=== PATIENT | female | born 1950 | race Caucasian/White ===

== ENCOUNTER 2020-12-23 14:37 | Emergency (ER) | payer MEDICARE, OTHER, SELFPAY ==
[2020-12-23 15:04] VITALS: BP 124/75; PULSE 94; RESP 14; TEMP 37.1; O2SAT 99; BMI 24.2
--- NOTE | 2020-12-23 15:08 | XRR_ITS ---
PROCEDURE INFORMATION: Exam: XR Left Ribs with PA Chest Exam date and time: 12/23/2020 3:12 PM Age: 70 years old Clinical indication: Pain; Other: Lt rib area; Additional info: Fall, rib pain and bruising TECHNIQUE: Imaging protocol: XR Left ribs with PA chest. Views: 3 views COMPARISON: CT Chest/Abdomen/Pelvis w IV* 05/19/2018 12:07 PM FINDINGS: Lungs: Mild hyperinflation of lungs. No focal airspace opacities. Pleural spaces: Unremarkable. No pleural effusion. No pneumothorax. Heart/Mediastinum: Unremarkable. No cardiomegaly. Bones/joints: Acute mildly displaced fracture in the posterior aspect of left ribs 8. XR/XR ribs LT mn 3V w CXR1V [id number] IMPRESSION: 1. Acute left posterior rib 8 fracture. 2. No focal airspace disease.
--- NOTE | 2020-12-23 15:43 | ED_ITS ---
HPI - Fall General: Chief Complaint: Fall Stated Complaint: FELL THIS MORNING, L RIB PAIN Time Seen by Provider: 12/23/20 15:08 History of Present Illness: HPI Narrative: Patient got up and fell against a nightstand a injuring left side of her chest has pain there presently and bruising. complaint: fall Onset (ago): hour(s) Fall from: standing Fall witnessed: no Place fall occurred: home Loss of consciousness: None Symptoms prior to fall: none Context: tripped/slipped Location of injury: chest Quality: aching Associated symptoms-after fall: Reports no associated symptoms; Denies abdominal pain, chest pain or headache(s) Review of Systems Narrative: Left side chest wall pain with bruising from a fall today Const: Denies: fever(s), chills or body aches Eyes: Denies: change in vision or blurry vision ENMT: Denies: throat pain or nasal congestion Card: Denies: chest pain or dyspnea on exertion Resp: Denies: dyspnea, productive cough or non-productive cough GI: Denies: abdominal pain, nausea or vomiting Musc: Denies: extremity pain Skin/Breast: Denies: rash Neuro: Denies: headache(s) Psych: Denies: anxiety or depression Alvaro/Lymph: Denies: easy bruising Physical Exam Const: COMMON NORMALS: no acute distress Chest: CHEST: Yes abnormal inspection of the chest (Tender left side with bruising 7th 8th rib area) Resp: COMMON NORMALS: clear to auscultation bilaterally AUSCULTATION: clear to auscultation bilaterally Psych: COMMON NORMALS: mental status grossly normal Course Vital Signs: Vital signs: Vital Signs Temperature 98.8 F 12/23/20 15:04 Pulse Rate 94 12/23/20 15:04 Respiratory Rate 14 12/23/20 15:04 Blood Pressure 124/75 12/23/20 15:04 Pulse Oximetry 99 12/23/20 15:04 Discharge Plan Discharge Condition: Good Coding Level of Care Code ED Hot Dog Vendor for Rogelio Shaw
[2020-12-23] MEDS: HYDROcodone-acetaminophen 5-325 mg Tablet 1 TAB PO (16:11)
== END 2020-12-23 16:22 | disposition home or self-care (01) ==
PROVIDERS: Emergency Provider Nurse Practitioner Family; PCP Internal Medicine
DX: R07.81 Pleurodynia (principal)
CPT/HCPCS: 71101; 99283

== ENCOUNTER 2021-01-25 10:28 | Outpatient (CLI) | payer MEDICARE, OTHER, SELFPAY ==
[2021-01-25 11:04] LABS: Basophils % 0.2 %; Eosinophils % 0.5 %; Hematocrit 41.4 % (37.0-47.0); Hemoglobin 13.6 g/dL (11.5-15.3); Lymphocytes # 1.7 10^3/uL (0.8-4.8); Lymphocytes % 20.3 %; Mean Corpuscular HGB Conc 32.9 g/dL (30.0-36.0); Mean Corpuscular Hemoglobin 28.6 pg (28.0-34.0); Mean Corpuscular Volume 87.2 fL (81-99); Mean Platelet Volume 10.6 fL (7.4-10.4); Monocytes # 0.5 10^3/uL (0.2-0.9); Monocytes % 6.7 %; Neutrophils # 5.86 10^3/uL (1.8-7.7); Neutrophils % 72.2 %; Nucleated Red Blood Cells % 0 %; Platelet Count 424 10^3/cmm (130-400); Red Blood Count 4.75 10^6/uL (4.1-5.3); White Blood Count 8.1 10^3/uL (4.0-10.0)
[2021-01-25 11:20] LABS: Ammonia 18 umol/L (11-51)
[2021-01-25 11:21] LABS: Alanine Aminotransferase 15 U/L (0-33); Albumin Level 4.6 g/dL (3.5-5.2); Alkaline Phosphatase 83 IU/L (35-105); Anion Gap 17.6 (5-19); Aspartate Amino Transferase 21 U/L (0-32); Blood Urea Nitrogen 10 mg/dL (8-23); Calcium 9.3 mg/dL (8.5-10.5); Carbon Dioxide 25 mmol/L (22-29); Chloride 98 mmol/L (98-107); Globulin 2.9 g/dL (1.3-4.6); Glomerular Filtration Rate 99.4 mL/min (90-130); Glucose 118 mg/dL (65-115); Osmolality Calculated 284 mOsm/kg (285-295); Potassium 3.6 mmol/L (3.5-5.1); Sodium 137 mmol/L (136-145); Total Bilirubin 0.9 mg/dL (0.15-1.2); Total Protein 7.5 g/dL (6.6-8.7)
== END 2021-01-25 10:29 | disposition home or self-care (01) ==
LOC: LAB 10:31
PROVIDERS: PCP Internal Medicine; Visit Provider Nurse Practitioner Family
DX: E87.6 Hypokalemia (principal); R41.0 Disorientation, unspecified; R11.0 Nausea
CPT/HCPCS: 36415; 80053; 82140; 85025

== ENCOUNTER 2021-03-06 10:34 | Outpatient (CLI) | payer MEDICARE, OTHER, SELFPAY ==
--- NOTE | 2021-03-06 10:40 | XR_ITS ---
WS: [id number] LEFT FOREARM 2 VIEWS HISTORY: PAIN IN LEFT ARM AFTER FALL COMPARISON: None available. Plate and screw fixation mid radius and ulna with healed fractures. Highly suspicious for nondisplace d radial metaphyseal fracture. There is a large amount of soft tissue edema surrounding the distal wr ist. Distal ulna is intact. Additional nondisplaced fracture through the radial styloid may be presen t. Mild narrowing of the radiocarpal joint. No foreign body or joint effusion. XR/XR forearm LT 2V [id number] IMPRESSION: 1. Nondisplaced radial metaphyseal fracture with a large amount of soft tissue edema. 2. Indeterminate for radial styloid fracture.
== END 2021-03-06 10:35 | disposition home or self-care (01) ==
PROVIDERS: PCP Internal Medicine; Visit Provider Internal Medicine
DX: S52.302A Unspecified fracture of shaft of left radius, initial encounter for closed fracture (principal); W19.XXXA Unspecified fall, initial encounter
CPT/HCPCS: 73090

== ENCOUNTER → 2021-03-07 10:30 | Outpatient (BNVA) | payer MEDICARE, OTHER, SELFPAY | PROVIDERS: PCP Internal Medicine; Referring Provider Internal Medicine; Visit Provider Specialist | DX: M25.532 Pain in left wrist (principal); Z46.89 Encounter for fitting and adjustment of other specified devices; S52.592D Other fractures of lower end of left radius, subsequent encounter for closed fracture with routine healing; X58.XXXD Exposure to other specified factors, subsequent encounter | CPT/HCPCS: 73110; 97760; L3982 ==

== ENCOUNTER 2021-03-07 11:42 | Outpatient (CLI) | payer MEDICARE, OTHER, SELFPAY | END 2021-03-07 11:43 | disposition home or self-care (01) | LOC: SPT 11:43 | PROVIDERS: PCP Internal Medicine; Visit Provider Specialist | DX: Z46.89 Encounter for fitting and adjustment of other specified devices (principal); S52.592D Other fractures of lower end of left radius, subsequent encounter for closed fracture with routine healing; X58.XXXD Exposure to other specified factors, subsequent encounter | CPT/HCPCS: 97760; L3982 ==

== ENCOUNTER 2021-03-16 15:08 | Outpatient (CLI) | payer MEDICARE, OTHER, SELFPAY ==
--- NOTE | 2021-03-16 15:15 | MM_ITS ---
WS: [id number] BILATERAL SCREENING DIGITAL MAMMOGRAM WITH CAD HISTORY: SCREENING COMPARISON: 05/19/2018 and 04/12/2016 Bilateral CC and MLO views submitted. Computer aided detection analyzed. Breast composition: The breasts are extremely dense, which lowers the sensitivity of mammography. No suspicious masses, microcalcifications or architectural distortion. Asymmetries in each breast remain stable. No area of distortion. Benign calcification anterior LEFT breast. MM/[place] [id number] IMPRESSION: BI-RADS: 2-Benign FOLLOW UP: 1 Year Follow-up
== END 2021-03-16 15:09 | disposition home or self-care (01) ==
LOC: RADSHAW 15:11
PROVIDERS: PCP Internal Medicine; Visit Provider Internal Medicine
DX: Z12.31 Encounter for screening mammogram for malignant neoplasm of breast (principal)
CPT/HCPCS: 77067

== ENCOUNTER → 2021-03-22 11:49 | Outpatient (BNVA) | payer MEDICARE, OTHER, SELFPAY | PROVIDERS: PCP Internal Medicine; Visit Provider Specialist | DX: M25.532 Pain in left wrist (principal); S52.502A Unspecified fracture of the lower end of left radius, initial encounter for closed fracture; X58.XXXA Exposure to other specified factors, initial encounter | CPT/HCPCS: 73110 ==

== ENCOUNTER → 2021-04-19 10:44 | Outpatient (BNVA) | payer MEDICARE, OTHER, SELFPAY | PROVIDERS: PCP Internal Medicine; Visit Provider Specialist | DX: S52.502A Unspecified fracture of the lower end of left radius, initial encounter for closed fracture (principal); S52.552A Other extraarticular fracture of lower end of left radius, initial encounter for closed fracture; M25.532 Pain in left wrist; X58.XXXA Exposure to other specified factors, initial encounter | CPT/HCPCS: 73110 ==

== ENCOUNTER 2022-02-13 09:51 | Outpatient (CLI) | payer MEDICARE, OTHER, SELFPAY ==
--- NOTE | 2022-02-13 10:09 | XR_ITS ---
WS: [id number] XR knee RT 4V [id number] REASON FOR EXAM: R KNEE PAIN FINDINGS: No fracture or focal bone lesion. Moderate narrowing of the lateral knee joint space with a more significant narrowing of the medial kn ee joint space. Subchondral sclerosis in both knee joint compartments with significant marginal osteo phyte formation in the medial knee joint compartment. Patellofemoral joint space is relatively well-maintained. Large patellofemoral joint marginal osteoph ytes of the femur. Probable joint loose bodies. XR/XR knee RT 4V [id number] IMPRESSION: Significant osteoarthritis in the right knee which is progressive compared 05/30.
== END 2022-02-13 09:52 | disposition home or self-care (01) ==
LOC: RAD 09:55
PROVIDERS: PCP Internal Medicine; Visit Provider Nurse Practitioner Family
DX: M25.561 Pain in right knee (principal); M17.11 Unilateral primary osteoarthritis, right knee
CPT/HCPCS: 73564

== ENCOUNTER → 2022-04-17 13:41 | Outpatient (BNVA) | payer MEDICARE, OTHER, SELFPAY | PROVIDERS: PCP Internal Medicine; Referring Provider Nurse Practitioner Family; Visit Provider Specialist | DX: M17.12 Unilateral primary osteoarthritis, left knee (principal); M17.11 Unilateral primary osteoarthritis, right knee | CPT/HCPCS: 73560; 73565; 99214 ==

== ENCOUNTER 2022-04-26 09:50 | Outpatient (CLI) | payer MEDICARE, OTHER, SELFPAY ==
--- NOTE | 2022-04-26 09:58 | MM_ITS ---
WS: [id number] BILATERAL SCREENING DIGITAL BREAST TOMOSYNTHESIS MAMMOGRAM WITH CAD HISTORY: SCREENING COMPARISON: 03/16/2021 and 05/19/2018 Bilateral CC and MLO views with tomosynthesis and synthetic mammography submitted. Computer aided det ection analyzed. Breast composition: The breasts are heterogeneously dense, which may obscure small masses. No suspici ous masses, microcalcifications or architectural distortion. MM/[place] [id number] IMPRESSION: BI-RADS: 1-Negative FOLLOW UP: 1 Year Follow-up
== END 2022-04-26 09:51 | disposition home or self-care (01) ==
PROVIDERS: PCP Internal Medicine; Visit Provider Internal Medicine
DX: Z12.31 Encounter for screening mammogram for malignant neoplasm of breast (principal)
CPT/HCPCS: 77063; 77067

== ENCOUNTER → 2022-05-27 10:16 | Outpatient (BNVA) | payer MEDICARE, OTHER, SELFPAY | PROVIDERS: PCP Internal Medicine; Visit Provider Specialist | DX: M17.11 Unilateral primary osteoarthritis, right knee (principal) | CPT/HCPCS: 99214 ==

== ENCOUNTER 2022-06-04 06:00 | Outpatient (CLI) | payer MEDICARE, OTHER, SELFPAY | END 2022-06-04 06:01 | disposition home or self-care (01) | LOC: RT 06-05 09:32 | PROVIDERS: PCP Internal Medicine; Visit Provider Specialist | DX: Z01.818 Encounter for other preprocedural examination (principal) | CPT/HCPCS: 93005 ==

== ENCOUNTER 2022-06-11 09:48 | Observation (INO) | payer MEDICARE, OTHER, SELFPAY ==
[2022-06-04 10:22] VITALS: BMI 29.9
--- NOTE | 2022-06-04 10:49 | ECG_ITS ---
[facility] Test Date: 2022-06-04 Pat Name: Elmira Kang Department: Room: Gender: Female Deputy Chief Executive: : 1950 Requested By: Inés Hill Order Number: [id number] Kumar MD: Quinn Powell M.D. Measurements Intervals Roland Rate: 65 P: 74 HI: 204 QRS: -21 QRSD: 118 T: 67 QT: 413 QTc: 431 Interpretive Statements SINUS RHYTHM INCOMPLETE RIGHT BUNDLE BRANCH BLOCK [90+ ms QRS DURATION, TERMINAL R IN V1/V2, 40+ ms S IN I/aVL/V4/V5/V6] SEPTAL MYOCARDIAL INFARCTION , PROBABLY OLD [40+ ms Q WAVE IN V1/V2] No previous ECG available for comparison Electronically Signed On 06-04-2022 16:32:08 CDT by Quinn Powell M.D. [email or web address]
[2022-06-04 10:59] LABS: Basophils % 0.6 %; Eosinophils # 0.1 10^3/uL (0.0-0.8); Eosinophils % 1.9 %; Hemoglobin 13.2 g/dL (11.5-15.3); Lymphocytes # 1.6 10^3/uL (0.8-4.8); Lymphocytes % 23.6 %; Mean Corpuscular Hemoglobin 27.4 pg (28.0-34.0); Mean Platelet Volume 10.3 fL (7.4-10.4); Monocytes # 0.5 10^3/uL (0.2-0.9); Monocytes % 7.7 %; Neutrophils # 4.55 10^3/uL (1.8-7.7); Neutrophils % 65.9 %; Nucleated Red Blood Cells % 0 %; Platelet Count 433 10^3/cmm (130-400); Red Blood Count 4.82 10^6/uL (4.1-5.3); Red Cell Distribution Width 12.9 % (12.1-15.1); White Blood Count 6.9 10^3/uL (4.0-10.0)
[2022-06-04 11:10] LABS: Add Urine Microscopic? YES; Bacteria Urine 2+ /hpf; Bilirubin Urine Neg (Negative); Blood Urine 3+ (Negative); Glucose Urine UA Norm (Normal); Ketones Urine Negative (Negative); Leukocyte Esterase Urine Trace (Negative); Nitrate Urine Negative (Negative); Protein Urine Neg (Negative); Specific Gravity, Urine 1.015 (1.005-1.030); Squamous Epithelial Cell Urine 0-4 /hpf (0-5); Urine Appearance Clear (CLEAR); Urine Color Yellow (Yellow); Urobilinogen Urine Norm (Negative); pH Urine 6 (5-7)
[2022-06-04 11:11] LABS: Add Urine Culture? Yes
[2022-06-04 11:21] LABS: Alanine Aminotransferase 7 U/L (0-33); Albumin Level 4.6 g/dL (3.5-5.2); Alkaline Phosphatase 84 U/L (35-105); Anion Gap 14.7 (5-19); Aspartate Amino Transferase 12 U/L (0-32); Blood Urea Nitrogen 12 mg/dL (8-23); Calcium 9.4 mg/dL (8.5-10.5); Carbon Dioxide 27 mmol/L (22-29); Chloride 101 mmol/L (98-107); Globulin 2.6 g/dL (1.3-4.6); Glucose 89 mg/dL (65-115); Osmolality Calculated 287 mOsm/kg (285-295); Potassium 3.7 mmol/L (3.5-5.1); Sodium 139 mmol/L (136-145); Total Bilirubin 0.5 mg/dL (0.15-1.2); Total Protein 7.2 g/dL (6.6-8.7)
--- NOTE | 2022-06-04 15:05 | ANES.PREANE2 ---
Pre-Anesthetic Assessment Height/Weight: Height 1.68 m Weight 84.368 kg Preop Diagnosis: Osteoarthritis Operation Date: 06/11/22 07:00 Proposed Procedures p RIGHT TOTAL KNEE ARTHROPLASTY 08235,M17.10(Right) - Cynthia Thorne MD Familial anesthetic complications: Last anesthetic woke up emotional Was Beta Binta taken within 24 hours: N/A Was Clonidine taken within 24 hours: N/A Social No alcohol and No tobacco Exam alert, oriented x 3, clear to auscultation bilaterally and regular rate & rhythm Airway Submandibular: within normal limits Cervical ROM: within normal limits Mallampati: Class I Dentition: full History/ROS No significant complaints Pulmonary None reported CV/HEM None reported METS > 4 EKG 06/04/22 ? Interpretive Statements SINUS RHYTHM INCOMPLETE RIGHT BUNDLE BRANCH BLOCK? [90+ ms QRS DURATION, TERMINAL R IN V1/V2, 40+ ms S IN I/aVL/V4/V5/V6] SEPTAL MYOCARDIAL INFARCTION , PROBABLY OLD [40+ ms Q WAVE IN V1/V2] No previous ECG available for comparison [email or web address] None reported Hepatic None reported GI Gastroesophageal Reflux Disease (Well controlled with medications ) Metabolic None reported Musc/skel None reported Neuropsych None reported Anesthetic Plan ASA status: 1 Anesthesia: Anesthesia Evaluation, General and Regional (specify below) (Adductor canal block ) Other: We discussed risk and benefits of general vs spinal anesthesia including DVT risk, infection, paralysis/catastrophic nerve injury, back bruising/pain, PDPH, conversion to general in case of spinal, PONV, sore throat (sometimes severe), corneal abrasion, positioning and peripheral nerve injuries, life threatening allergic reaction, post operative ICU admission requiring prolonged intubation, stroke, heart attack, , post operative delirium and/or post operative cognitive decline, and rare incidences of recall (under general anesthesia). We discussed risk and benefits of nerve block for post op pain control including management of pain and titration of pain medications as signs/symptoms of nerve block wearing off begin to appear and/or prior bed. We discussed risk of failed nerve block, vascular injury or other vital structure injury, abscess/infection, LAST, and nerve injury. Patient would like to proceed with spinal with adductor canal block for post op pain control. Risk of > 500 ml blood loss (7ml/kg in children): No Medications/Allergies Home Medications Medication Instructions Recorded Confirmed Last Taken Type amlodipine 5 mg tablet 5 mg PO DAILY 01/26/21 06/04/22 Unknown History levothyroxine 88 mcg capsule 88 mcg PO DAILY 01/26/21 06/04/22 Unknown History mirtazapine 30 mg tablet (Remeron) 30 mg PO DAILY 01/26/21 06/04/22 Unknown History oxycodone 10 mg tablet,extended 10 mg PO DAILY 01/26/21 06/04/22 Unknown History release,12 hr pantoprazole 40 mg tablet,delayed 40 mg PO DAILY 01/26/21 06/04/22 Unknown History release buspirone 15 mg tablet 15 mg PO BID 04/17/22 06/04/22 Unknown History celecoxib 200 mg capsule 200 mg PO DAILY 04/17/22 06/04/22 Unknown History zaleplon 10 mg capsule 10 mg PO BEDTIME 04/17/22 06/04/22 Unknown History Allergies Allergy/AdvReac Type Severity Reaction Status Date / Time No Known Allergies Allergy Verified 06/04/22 10:13 [facility] Anesthesia Family History Mother Hyperlipidemia Migraines Father Hypertension Brother Hyperlipidemia Social History Smoking and tobacco status: former smoker (as teenager) Alcohol intake: never Data Anesthesia : 06/04/22 10:40 06/04/22 10:40 Short CBC 06/04/22 Range/Units 10:40 WBC 6.9 (4.0-10.0) 10^3/uL Hgb 13.2 (11.5-15.3) g/dL Hct 40.0 (37.0-47.0) % MCV 83.0 (81-99) fl Plt Count 433 H (130-400) 10^3/cmm Neut % (Auto) 65.9 % Neut # (Auto) 4.55 (1.8-7.7) 10^3/uL BMP 06/04/22 10:40 Sodium 139 Potassium 3.7 Chloride 101 Carbon Dioxide 27 BUN 12 Creatinine 0.5 Glucose 89 Calcium 9.4 Liver Function 06/04/22 Range/Units 10:40 Total Bilirubin 0.5 (0.15-1.2) mg/dL AST 12 (0-32) U/L ALT 7 (0-33) U/L Alkaline Phosphatase 84 (35-105) U/L Albumin 4.6 (3.5-5.2) g/dL Urine 06/04/22 Range/Units 10:40 Urine Color Yellow (Yellow) Urine Appearance Clear (CLEAR) Urine pH 6 (5-7) Ur Specific [place] 1.015 (1.005-1.030) Urine Protein Neg (Negative) Urine Glucose (UA) Norm (Normal) Urine Ketones Negative (Negative) Urine Nitrate Negative (Negative) Urine Bilirubin Neg (Negative) Ur Leukocyte Esterase Trace H (Negative) Urine RBC 5-10 H (0-2) /hpf Urine WBC 5-10 H (0-5) /hpf Cardiac Studies: No Data to Display
[2022-06-11] VITALS (22 sets, daily range): BP systolic 103–159; BP diastolic 56–83; PULSE 66–83; RESP 14–18; TEMP 36.2–37.3; O2SAT 95–100
[2022-06-11] MEDS: acetaminophen 1,000 MG/100 ML PIGGYBACK 400 MG IV ×3 (06:08→20:58)
[2022-06-11] MEDS: sodium chloride 0.9% 1,000 ML 30 ML IV (06:09)
[2022-06-11] MEDS: CELEcoxib 200 mg Capsule 400 MG PO (06:09)
--- NOTE | 2022-06-11 06:46 | P.ANESUD_ITS ---
Pre-Anesthetic Update Pre-Anesthetic Assessment: Date of Surgery/Procedure: 06/11/22 Preop Danyelle gnosis: Primary osteoarthritis right knee Proposed Procedure: Operation Date: 06/11/22 07:00 Proposed Procedures p RIGHT TOTAL KNEE ARTHROPLASTY 32879,M17.10(Right) - Cynthia Thorne MD Any changes to Pre-Anesthetic Assessment?: No Last Intake: Intake Last Liquid Date 06/10/22 Last Liquid Time 21:00 Last Solid Date 06/10/22 Last Solid Time 17:00 Vitals: Temperature 97.6 F 06/11/22 05:45 Temperature Source Temporal Artery S can 06/11/22 05:45 Pulse Rate 76 06/11/22 05:45 Respiratory Rate 18 06/11/22 05:45 Blood Pressure 159/83 06/11/22 05:45 Blood Pressure Emily n 108 06/11/22 05:45 Pulse Oximetry 95 06/11/22 05:45 Oxygen Delivery Me thod 06/11/22 05:46 Exam: Pre-Anes Outpt Exam: alert, oriented x 3, clear to auscultation bilaterally and regular rate & rhythm Cardiac Studies: No Data to Display
--- NOTE | 2022-06-11 06:46 | ANES.PROC ---
Anesthesia Procedures Procedure/Date: 06/11/22 Nerve Block ^: Nerve Block 1: Main Anesthesia: spinal anesthesia block Time Out Performed: Yes Consent: requested by attending/covering physician, from patient, risks and benefits reviewed and patient agrees to proceed Nerve block location: adductor canal (R) Anesthesia monitors applied: pulse oximetry, EKG, BP cuff and oxygen Nerve block position: semi sitting Anesthetic Used: ropivicaine 0.5% (30) and with decadron (4 mg) Ultrasound used to: recognize landmarks and visualize and ID femerol nerve Nerve Stimulator Used?: No Interscalene/Femoral BLK: 4 stimuplex 21 g needle used for position and inplane approach, visualize local anesthetic spread and no vascular puncture identified Injection: neg aspiration of heme Patient Tolerated Procedure: well Complications: none
--- NOTE | 2022-06-11 06:54 | W.PM.OPSUD ---
Surgery/Procedure H&P Update DATE OF PROCEDURE: June 11, 2022 DATE H&P PERFORMED: 05/27/22 H&P UPDATE INFORMATION: I have reviewed H&P completed within last 30 days, I have examined patient prior to procedure, No changes to prior documentation and H&P is in [facility] EMR on date indicated PREOP DIAGNOSIS: Primary osteoarthritis right knee PLANNED PROCEDURE: Operation Date: 06/11/22 07:00 Proposed Procedures p RIGHT TOTAL KNEE ARTHROPLASTY 44290,M17.10(Right) - Cynthia Thorne MD Related Problem List Diagnoses (1) Primary osteoarthritis of right knee:
[2022-06-11] MEDS: ceFAZolin 2,000 MG in sodium chloride 0.9% (plus) 50 ML 100 MG IV ×3 (07:00→21:12)
[2022-06-11] MEDS: sodium chloride 0.9% 100 mL Bag XX (08:09)
[2022-06-11] MEDS: ceFAZolin 1,000 mg SDV 2000 MG IRRIGATION (08:10)
[2022-06-11] MEDS: vancomycin 1,000 MG SDV 1000 MG XX (08:11)
[2022-06-11] MEDS: tranexamic acid 1,000 mg/10mL SDV 1000 MG IV (09:15)
--- NOTE | 2022-06-11 10:24 | P.PCN_ITS ---
PACU note Narrative: VSS, Good respiratory effort, report to WIRE WINDER Exam: awake
--- NOTE | 2022-06-11 10:24 | PM.PACU ---
PACU note Narrative: VSS, Good respiratory effort, report to SUPERINTENDENT CUSTODIAN JANITOR Exam: awake
--- NOTE | 2022-06-11 10:32 | XRR_ITS ---
PROCEDURE INFORMATION: Exam: XR Right Knee Exam date and time: 06/11/2022 10:34 AM Age: 72 years old Clinical indication: Device placement; Joint replacement hardware; Prior surgery; Surgery date: Post-operative (0-2 days); Surgery type: Total knee arthroplasty; Additional info: Status post total knee arthroplasty TECHNIQUE: Imaging protocol: Radiologic exam of the Right knee. Views: 1 or 2 views. AP and Lateral COMPARISON: CR XR knees AP WB w RT lmt ORTH 04/17/2022 1:45 PM FINDINGS: Bones/joints: Recent postsurgical changes are seen status post 3 component total knee arthroplasty. There is expected postsurgical alignment. There are no fractures or dislocations. Soft tissues: There is soft tissue gas and swelling seen, related to the recent surgery. There are no radiopaque foreign bodies. Notes: Followup radiographs may be obtained for complete assessment. XR/XR knee RT 1-2V [id number] IMPRESSION: Postsurgical changes of the knee status post 3 component total knee arthroplasty, as noted above.
--- NOTE | 2022-06-11 10:51 | P.OP_ITS ---
Operative Report Date of procedure: June 11, 2022 Pre-op diagnosis: Primary osteoarthritis right knee Post-op diagnosis: Primary osteoarthritis right knee Post-op findings: Severe degenerative osteoarthritic change with denuded bone and large osteophytes Procedure done: Right total knee arthroplasty Implants: The Feliciano total knee system with a size 5 triathlon beaded posterior stabilized femur right, a triathlon titanium tibial component size 5 beaded, a triathlon X3 posterior stabilized tibial bearing insert size 5 X 11 mm and a beaded triathlon titanium asymmetric patella size 32 x 10 mm Specimens removed/disposition: Bone, disposed of Pathology: none sent Surgeon: Cynthia Thorne Linux Admin Engineer: [facility] operating room technicians Anesthesia: MAC (With Spinal and supplemental adductor canal block, ASA 1) Estimated blood loss (mL): 100 Tourniquet time (min): 71 At 250 mmHg IV fluids (mL): 1,200 Urine output (mL): 250 Complications: None Findings: Severe degenerative osteoarthritic change with large osteophytes in all 3 compartments. Flexion contracture. Condition: stable Disposition: PACU (Then to floor for post rehabilitation and pain management) Brief History: This 72-year-old woman presented to my office with complaints of severe right knee pain and instability. She had significant nonoperative treatments without improvement to a significant degree in her ability to perform activities of daily living. Patient states that she continued to have pain to the knee with instability.? In fact, she notes it has significantly worsened.? Patient ambulates with the use of a cane. Patient rates her pain a 6/10 preoperatively. Patient has attended the pre-operative joint class, and after consideration, she wished to proceed with right total knee arthroplasty. She understood the risks and complications, and consents were signed. Procedure: The patient was brought to the operating theater, and after undergoing adequate spinal anesthesia supplemented with adductor canal block and MAC, ASA 1, the right lower extremity was prepped with Dura-Prep and draped in usual fashion following placement of a tourniquet high on the leg. The leg was then draped free. Following prepping and draping, the leg was exsanguinated, and the tourniquet was elevated to 250 mmHg for a total tourniquet time of 71 minutes.? Prior to elevation of the tourniquet, but following exposure of the site of surgery, a surgical pause was performed. At the time of the surgical pause, we confirmed the site and side of surgery. Additionally, we confirmed the appropriate and timely administration of preoperative antibiotics, Ancef 2 g and Transexemic acid 1 g.? The availability of equipment was confirmed, and the patient's identity was verbalized as well.? An additional transexemic acid 1 g was given at the end of the surgical procedure as well. Following the surgical pause, an incision was made centering over the patella continuing proximally and distally as necessary to allow access to the knee joint. Dissection continued through skin and soft tissues using a scalpel. Hemostasis was obtained using electrocautery. The skin incision was followed by a median parapatellar arthrotomy. The leg was extended and the patella was everted. Following this, the leg was returned to flexed position.? There was eburnation particularly of the medial femoral condyle.? There were large osteophytes circumferentially about the trochlear groove as well as the patella and medial tibial plateau.? Resection of osteophytes was accomplished to allow for appropriate placement of the intraoperative jogging system. Distal femur was exposed, and a drill hole was made in this for placement of the distal femor al jig. The distal femoral jig was set at 5? of valgus. The distal femoral cutting block was then placed in appropriate position, and an ghislaine wing was used to confirm an appropriate amount of distal femur would be resected.? The distal femoral resection was accomplished with 10 mm of bone being resected distally due to preoperative flexion contracture.? After the distal femoral resection was accomplished, the femur was measured, and it measured a size 5.? Medial lateral dimension also measured a size 5.? A size 5 femoral cutting block was placed in position, and we were then able to accomplish the anterior, posterior and chamfer cuts. This jig was then removed, and the notch guide was placed in position. With the notch guide in appropriate position, the notch was excised including resection of the anterior and posterior cruciate ligaments. This notch was to allow for the posterior stabilized femoral component. At this point, the femur was prepared and attention was directed to the proximal tibia.? The posterior knee retractor was placed along with medial and lateral retractors. Further resection of the menisci was accomplished as we had better visualization. A complete meniscectomy was performed both medially and laterally with care being taken to protect the popliteus. Retractors were then placed so that the proximal tibia was well visualized. A drill hole was then made in the tibia for placement of the intramedullary guide. This guide was placed so that approximately 2 mm of bone would be resected from the deficient medial tibial plateau. The intramedullary guide was utilized supplemented with an extramedullary guide to assure appropriate alignment for the proximal tibial resection. The proximal tibial jig was then evaluated, pinned in position, and the proximal tibial resection was accomplished without difficulty.? The jig was removed, and the proximal tibia was measured. It measured a size 5. Further resection of osteophytes was able to be accomplished at this time. We also removed osteophytes from the posterior femoral condyles following proximal tibial resection. We then attempted a trial reduction with a size 5 by 9 mm. A medial release was accomplished.? The femoral component was placed in position for the trial reduction, and the knee was placed through range of motion.? We then increased to a size 5 x 11 mm insert. With this, there was appropriate patellar tracking. Extension was noted to be full as well.? With had excellent varus valgus alignment, and the knee was stable to varus valgus stress as well.? Therefore, these were the chosen components.? There was full extension and flexion without lift off and the rotation of the tibia was marked.? Alignment was checked from the hip to the ankle, and this was noted to be appropriate as w ell. Attention was then directed to the patella. The patella was measured with a caliper.? We resected sufficient patella to leave approximately 14 mm of patella remaining.? Measurements of the patella then indicated that a size asymmetric 32 mm x 10 mm was the appropriate patellar size. We then placed the jig to drill for the 3 pegs of the press-fit patella, and these drill holes were made without incident. A trial patella was then placed, and the knee was placed through range of motion. The patella was noted to track nicely without evidence of subluxation.? The femur was prepared for a press-fit femur by drilling 2 holes for the femoral pegs.? All trial components were subsequently removed. The tibial tray was then pinned into position, and we broached the tibia for the stem of the tibial component.? Subsequently, 4 drill holes were made for placement of the press-fit tibia.? This was accomplished without difficulty. Care was taken to assure appropriate rotation of the tibia as well as appropriate position on the proximal tibia. The tibial tray was completely seated on the proximal tibia. Following broaching, the tibial guide was removed, and all surfaces were copiously irrigated. The surfaces were then dried and a bone plug was placed into the distal femur.? Exparel was also subsequently injected. The Tritanium tibia was impacted into position.? The beaded femur was then i mpacted into position in a cementless fashion. The tibial insert was placed. The patella was pressed into position with a patellar clamp.? The knee was then copiously irrigated with betadine and saline and suctioned dry. Attention was then directed to closure. Closure was accomplished with 0 Vicryl in the fascial tissues.? Following this, a 2-0 Monocryl was used in the subcutaneous tissues, and the skin was closed with skin [place].? Care was taken to assure an excellent subcutaneous as well as skin closure.? A sterile dressing was then placed consisting of Dermabond Prineo, Telfa, OpSite, sterile soft roll including over the foot, and an Zechariah wrap. The patient was returned the Recovery Room in a satisfactory condition. X-rays were obtained and reviewed there.? The patient will be discharged to the floor for postoperative rehabilitation and pain management. Related Problem List Diagnoses (1) Primary osteoarthritis of right knee: (2) Status post total right knee replacement not using cement:
[2022-06-11] MEDS: pantoprazole DR 40 mg Tablet PO (11:51)
[2022-06-11] MEDS: amlodipine 5 mg Tablet PO (11:51)
[2022-06-11] MEDS: cholecalciferol (vitamin D3) 1,000 unit Tablet 1000 UNIT PO (11:51)
[2022-06-11] MEDS: oxyCODONE 5 mg IR Tab/Cap PO ×3 (11:51→20:58)
--- NOTE | 2022-06-11 12:41 | PC.CHAP ---
Pastoral Care Encounter/Spiritual Assessment Type of Contact [] Declined director operations broadcast visit [] Patient/Family/Request visit [] Outpatient visit [] Follow-up visit [] Physician referral [] Code/Alert [x] Routine visit [] Staff referral [] Actively dying [] Patient sleeping [] Family support [] [] Out of room [] Palliative care [] [] Receiving care in room [] Pre-surgical visit [] Trauma [] Long length of stay [] ICU visit [] Other: Relational/Emotional Strength [x] Patient feels connected with others/family/visitors/staff [] Distress [] Loneliness/isolation [] Abandonment Spirituality of Patient x[] Person of Sachi [] Attends Shinto of their Sachi [x] Believes in Prayer [] Reads Bible or Faith materials [] There are Spiritual issues to be addressed Supervisor Purification Interventions [x] Prayer [x] Active listening [] Non-anxious presence [] Spiritual/emotional support [] Crisis/trauma care [] Spiritual counseling [] Bereavement support [] Provided bereavement packet [] Provided Bible/devotional materials [] Provided toy/stuffed animal, coloring book to patient or family member [] Provided Communion [] Anointing/Mary Alice [] Salvation [x] Completed spiritual assessment [] Other: Impact on Illness or Injury [] Angry [] Fearful [] Anxious [] Often cries [] Exhaustion [] Unable to work [] Unable to attend temple [] Unable to walk/stand [] Unable to read [] Unable to drive [] Unable to eat/drink [] Unable to sleep [] Unable to be with family [] Patient intubated [] Other: Summary Time spent with patient 10 min
--- NOTE | 2022-06-11 15:27 | ANE.PACU2 ---
Inpatient post-anesthesia follow up: Airway intact: Yes Vital signs: Temperature 98.1 F Pulse Rate 73 Respiratory Rate 17 Blood Pressure 115/62 Pulse Oximetry 95 Oxygen Delivery Me thod Room Air Oxygen Flow Rate Fraction of Inspir ed Oxygen Hydration adequate: Yes Nausea and vomiting: No Pain level: 1 Mental status: Baseline
[2022-06-11] MEDS: chlorhexidine gluconate 0.12% Btl 473 mL 30 ML MUCOUS MEM ×2 (15:53→19:31)
[2022-06-11] MEDS: sennosides-docusate Tablet 2 TAB PO (17:04)
[2022-06-11] MEDS: sulfamethoxazole-trimeth DS 160-800 mg Tablet 1 TAB PO (17:04)
[2022-06-11] MEDS: BuSPIRONE 10 mg Tablet 15 MG PO (17:04)
[2022-06-11] MEDS: iron polysaccharide complex 150 mg Capsule PO (17:04)
[2022-06-11] MEDS: CELEcoxib 200 mg Capsule PO (19:28)
[2022-06-11] MEDS: mirtazapine 30 mg Tablet PO (19:28)
[2022-06-12] VITALS (8 sets, daily range): BP systolic 102–130; BP diastolic 61–74; PULSE 70–76; RESP 16; TEMP 36.5–36.9; O2SAT 96–97
[2022-06-12] MEDS: oxyCODONE 5 mg IR Tab/Cap PO ×3 (01:04→12:57)
[2022-06-12 03:14] LABS: Basophils % 0.1 %; Eosinophils % 0.2 %; Hematocrit 29.6 % (37.0-47.0); Hemoglobin 9.5 g/dL (11.5-15.3); Lymphocytes # 1.4 10^3/uL (0.8-4.8); Lymphocytes % 15.7 %; Mean Corpuscular HGB Conc 32.1 g/dL (30.0-36.0); Mean Corpuscular Volume 84.1 fl (81-99); Mean Platelet Volume 10.7 fL (7.4-10.4); Monocytes % 11.1 %; Neutrophils # 6.55 10^3/uL (1.8-7.7); Neutrophils % 72.6 %; Nucleated Red Blood Cells % 0 %; Platelet Count 283 10^3/cmm (130-400); Red Blood Count 3.52 10^6/uL (4.1-5.3); Red Cell Distribution Width 13.2 % (12.1-15.1)
[2022-06-12 03:42] LABS: Anion Gap 12.3 (5-19); Blood Urea Nitrogen 20 mg/dL (8-23); Calcium 8.8 mg/dL (8.5-10.5); Carbon Dioxide 25 mmol/L (22-29); Chloride 102 mmol/L (98-107); Glomerular Filtration Rate 82.7 mL/min (90-130); Glucose 124 mg/dL (65-115); Osmolality Calculated 286 mOsm/kg (285-295); Potassium 3.3 mmol/L (3.5-5.1); Sodium 136 mmol/L (136-145)
[2022-06-12] MEDS: acetaminophen 1,000 MG/100 ML PIGGYBACK 400 MG IV (05:06)
[2022-06-12] MEDS: ceFAZolin 2,000 MG in sodium chloride 0.9% (plus) 50 ML 100 MG IV (05:24)
[2022-06-12] MEDS: sennosides-docusate Tablet 2 TAB PO (07:24)
[2022-06-12] MEDS: levothyroxine 88 mcg Tablet PO (07:24)
[2022-06-12] MEDS: calcium carbonate 500 mg Chew Tablet 1000 MG PO (07:24)
[2022-06-12] MEDS: cholecalciferol (vitamin D3) 1,000 unit Tablet 1000 UNIT PO (07:25)
[2022-06-12] MEDS: BuSPIRONE 10 mg Tablet 15 MG PO (07:25)
[2022-06-12] MEDS: amlodipine 5 mg Tablet PO (07:25)
[2022-06-12] MEDS: aspirin 325 mg EC Tablet PO (07:25)
[2022-06-12] MEDS: sulfamethoxazole-trimeth DS 160-800 mg Tablet 1 TAB PO (07:25)
[2022-06-12] MEDS: multivitamin therapeutic Tablet 1 TAB PO (07:25)
[2022-06-12] MEDS: CELEcoxib 200 mg Capsule PO (07:26)
[2022-06-12] MEDS: pantoprazole DR 40 mg Tablet PO (07:26)
[2022-06-12] MEDS: iron polysaccharide complex 150 mg Capsule PO (07:26)
[2022-06-12] MEDS: chlorhexidine gluconate 0.12% Btl 473 mL 30 ML MUCOUS MEM (07:26)
[2022-06-12] MEDS: oxyCODONE 10 mg ER (12 HR) Tablet PO (10:04)
--- NOTE | 2022-06-12 13:44 | P.DS_ITS ---
Discharge Providers Date of Admission: 06/11/22 09:48 Date of Discharge: June 12, 2022 Attending Provider at Admission: Cynthia Thorne MD Attending Provider at Discharge: Cynthia Thorne MD Primary Care Provider: Sherley Cast MD Diagnoses at Discharge Discharge Diagnosis (1) Primary osteoarthritis of right knee: Status: Acute (2) Status post total right knee replacement not using cement: Status: Acute Permanent problem details: Date of procedure: June 11, 2022 Diagnosis: Primary osteoarthritis right knee with large osteophytes and flexion contracture Procedure done: Right total knee arthroplasty Implants: The [employer] total knee system with a size 5 triathlon beaded posterior stabilized femur right, a triathlon titanium tibial component size 5 beaded, a triathlon X3 posterior stabilized tibial bearing insert size 5 X 11 mm and a beaded triathlon titanium asymmetric patella size 32 x 10 mm Reason for Visit Reason for Visit: Right total knee arthroplasty Brief History: This 72-year-old woman presented to my office with complaints of severe right knee pain and instability.? She had significant nonoperative treatments without improvement to a significant degree in her ability to perform activities of daily living.? Patient states that she continued to have pain to the knee with instability.? In fact, she notes it has significantly worsened.? Patient ambulates with the use of a cane. Patient rates her pain a 6/10 preoperatively. Patient has attended the pre-operative joint class, and after consideration, she wished to proceed with right total knee arthroplasty.? She understood the risks and complications, and consents were signed. Hospital Course Hospital Course Patient was admitted following total knee arthroplasty as observation patient. She was to have physical therapy and be evaluated for potential discharge home with home health. The patient did well following her same-day total knee arthroplasty. On the first postoperative day, she was seen and evaluated on the floor. She was doing very well and was independent in getting up to the bathroom. Her dressing was removed. Her wound was benign. There was no evidence of DVT. She was neurologically intact. Outer bulky dressing was removed with the OpSite being maintained in appropriate position. After discussion with the patient, she was comfortable with discharge to home. Therefore this was scheduled for her. She will follow-up in the office as scheduled. Physical Exam Const: COMMON NORMALS: no acute distress, average body habitus, patient oriented x3 and alert GENERAL APPEARANCE: cooperative and comfortable ORIENTATION/CONSCIOUSNESS: Yes awake HENMT: COMMON NORMALS: normocephalic and atraumatic HEAD & SCALP: normocephalic and atraumatic Eye: GENERAL EYE: appearance normal, both eyes and all related structures Chest: COMMONS NORMALS: normal inspection of the chest Resp: COMMON NORMALS: normal respiratory effort EFFORT & INSPECTION: Yes able to speak in complete sentences and Yes symmetric chest movement Extremity: RIGHT LOWER EXTREMITY: Yes knee joint (Bulky dressing is removed, the knee is benign with minimal swelling.) Right knee: Yes inspection (No evidence of drainage.), Yes palpation (No tenderness to palpation.) and Yes neurovascular exam (Intact distally.) Neuro: COMMON NORMALS: patient oriented x3 SENSORIUM/ORIENTATION: Yes alert Psych: COMMON NORMALS: mental status grossly normal APPEARANCE: Yes grossly normal ATTITUDE: Yes calm and Yes engaged ATTENTION/CONCENTRATION: Yes attention grossly intact Skin: COMMON NORMALS: no rashes or lesions noted GENERAL SKIN EXAM: no rashes or lesions noted Urinary Catheter Management: Trinh: Cath Placed During This Visit: yes, but has since been removed by the nurse Reason for Continuing Indwelling Catheter: Decision to DC Catheter Urinary Catheter Date of Insertion: 06/11/22 Urinary Catheter Time of Insertion: 07:30 Date Urinary Catheter Removed: 06/12/22 Time Urinary Catheter Discontinued: 04:30 Discharge Data Studies Completed and Pending Completed Studies During Hospitalization Category Date Time Status XR knee RT 1-2V [id number] Routine Exams 06/11/22 10:32 Completed Radiology Impressions Knee X-Ray 06/11/22 10:32 IMPRESSION: Postsurgical changes of the knee status post 3 component total knee arthroplasty, as noted above. Laboratory Results WBC 9.0 10^3/uL (4.0-10.0) 06/12/22 02:28 RBC 3.52 10^6/uL (4.1-5.3) L 06/12/22 02:28 Hgb 9.5 g/dL (11.5-15.3) L 06/12/22 02:28 Hct 29.6 % (37.0-47.0) L 06/12/22 02:28 MCV 84.1 fl (81-99) 06/12/22 02:28 MCH 27.0 pg (28.0-34.0) L 06/12/22 02:28 MCHC 32.1 g/dL (30.0-36.0) 06/12/22 02:28 RDW 13.2 % (12.1-15.1) 06/12/22 02:28 Plt Count 283 10^3/cmm (130-400) 06/12/22 02:28 MPV 10.7 fL (7.4-10.4) H 06/12/22 02:28 Neut % (Auto) 72.6 % 06/12/22 02:28 Lymph % (Auto) 15.7 % 06/12/22 02:28 [place] % (Auto) 11.1 % 06/12/22 02:28 Eos % (Auto) 0.2 % 06/12/22 02:28 Baso % (Auto) 0.1 % 06/12/22 02:28 Neut # (Auto) 6.55 10^3/uL (1.8-7.7) 06/12/22 02:28 Lymph # (Auto) 1.4 10^3/uL (0.8-4.8) 06/12/22 02:28 [place] # (Auto) 1.0 10^3/uL (0.2-0.9) H 06/12/22 02:28 Eos # (Auto) 0.0 10^3/uL (0.0-0.8) 06/12/22 02:28 Baso # (Auto) 0.0 10^3/uL (0.0-0.1) 06/12/22 02:28 Nucleated RBC % (auto) 0 % 06/12/22 02:28 Nucleated RBCs # 0.0 /100WBC 06/12/22 02:28 Sodium 136 mmol/L (136-145) 06/12/22 02:28 Potassium 3.3 mmol/L (3.5-5.1) L 06/12/22 02:28 Chloride 102 mmol/L (98-107) 06/12/22 02:28 Carbon Dioxide 25 mmol/L (22-29) 06/12/22 02:28 Anion Gap 12.3 (5-19) 06/12/22 02:28 BUN 20 mg/dL (8-23) 06/12/22 02:28 Creatinine 0.7 mg/dL (0.5-0.9) 06/12/22 02:28 GFR Calculation 82.7 mL/min (90-130) L 06/12/22 02:28 Glucose 124 mg/dL (65-115) H 06/12/22 02:28 Calculated Osmolality 286 mOsm/kg (285-295) 06/12/22 02:28 Calcium 8.8 mg/dL (8.5-10.5) 06/12/22 02:28 Total Bilirubin 0.5 mg/dL (0.15-1.2) 06/04/22 10:40 AST 12 U/L (0-32) 06/04/22 10:40 ALT 7 U/L (0-33) 06/04/22 10:40 Alkaline Phosphatase 84 U/L (35-105) 06/04/22 10:40 Total Protein 7.2 g/dL (6.6-8.7) 06/04/22 10:40 Albumin 4.6 g/dL (3.5-5.2) 06/04/22 10:40 Globulin 2.6 g/dL (1.3-4.6) 06/04/22 10:40 Urine Color Yellow (Yellow) 06/04/22 10:40 Urine Appearance Clear (CLEAR) 06/04/22 10:40 Urine pH 6 (5-7) 06/04/22 10:40 Ur Specific [place] 1.015 (1.005-1.030) 06/04/22 10:40 Urine Protein Neg (Negative) 06/04/22 10:40 Urine Glucose (UA) Norm (Normal) 06/04/22 10:40 Urine Ketones Negative (Negative) 06/04/22 10:40 Urine Blood 3+ (Negative) H 06/04/22 10:40 Urine Nitrate Negative (Negative) 06/04/22 10:40 Urine Bilirubin Neg (Negative) 06/04/22 10:40 Urine Urobilinogen Norm mg/dL (Negative) 06/04/22 10:40 Ur Leukocyte Esterase Trace (Negative) H 06/04/22 10:40 Urine RBC 5-10 /hpf (0-2) H 06/04/22 10:40 Urine WBC 5-10 /hpf (0-5) H 06/04/22 10:40 Ur Squamous Epith Cells 0-4 /hpf (0-5) H 06/04/22 10:40 Amorphous Sediment Not Reportable 06/04/22 10:40 Urine Bacteria 2+ /hpf (NONE) H 06/04/22 10:40 Urine Yeast Trace /hpf 06/04/22 10:40 Vitals Last Vital Signs Temp 97.9 F 06/12/22 12:00 Pulse 76 06/12/22 12:00 Resp 16 06/12/22 13:40 BP 102/63 06/12/22 12:00 Pulse Ox 97 06/12/22 12:00 O2 Del Method 06/12/22 12:00 Discharge Plan Discharge Patient Disposition: Home Health Service Condition: Stable Prescriptions: New acetaminophen 500 mg Tablet 1,000 mg PO Q8H 15 Days Qty: 90 0RF aspirin 325 mg Tablet,Delayed Release (Dr/Ec) 325 mg PO DAILY 30 Days Qty: 30 0RF oxycodone 5 mg Tablet 5 mg PO Q4H PRN (Reason: Moderate Pain) 7 Days Qty: 30 0RF Continued amlodipine 5 mg tablet 5 mg PO DAILY oxycodone 10 mg tablet extended release 12 hr 10 mg PO DAILY pantoprazole 40 mg tablet,delayed release (DR/EC) 40 mg PO DAILY mirtazapine [Remeron] 30 mg tablet 30 mg PO DAILY levothyroxine 88 mcg capsule 88 mcg PO DAILY zaleplon 10 mg capsule 10 mg PO BEDTIME buspirone 15 mg tablet 15 mg PO BID celecoxib 200 mg capsule 200 mg PO DAILY sulfamethoxazole-trimethoprim [Bactrim DS] 800-160 mg tablet 1 tab PO BID 7 Days Qty: 14 0RF Rx Instructions: Take 1 tablet twice daily Discharge Orders: Discharge Order (Routine); Ordered 06/12/22 Ordered By: Cynthia Thorne Other Ambulatory Orders: DME: [employer] (Order) Location: None Selected Ordered By: Cynthia Thorne DME: Walker (Order) Location: None Selected Ordered By: Cynthia Thorne [place] [facility] [place] [Outside] Cynthia Thorne MD [Physician] - 06/24/22 3:00 pm (This will be with LIONEL Arce. You will see me at the next visit.) Discharge Diet: Advance as tolerated and Usual diet Discharge Activity: Increase activity as tolerated, Limit activity as instructed, Use walker/crutches as instructed and As per PT/OT instructions Patient Instructions: Oxycodone/Acetaminophen (By mouth), Aspirin (By mouth), Knee Replacement (GEN), Joint Replacement Stoplight, Opioid Safety Activity Restrictions/Additional Instructions: You may shower, but leave dressing in place unless it gets wet. Maintain dressing until it comes off on its own. Weightbearing as tolerated. Gait training, range of motion, and ambulation with physical therapy. Discharge Attestations Time Spent in Discharge Care*: greater than 30 min Specific Discharge Activities: educating patient, documenting/other paperwork and evaluating patient/reviewing data Quality Metrics Clinical Quality Measures [ No reported AMI, CVA or VTE this stay] Coding Level of Care Code Acute g [facility] note Diagnoses Primary osteoarthritis of right knee M17.11 Status post total right knee replacement not using cement Z96.651
== END 2022-06-12 13:41 | disposition home health service (06) ==
LOC: MEDSURG 09:49
PROVIDERS: Admitting Provider Specialist; PCP Internal Medicine; Visit Provider Specialist
PROC: (CPT 27447; principal; 2022-06-11 07:00)
DX: M17.11 Unilateral primary osteoarthritis, right knee (principal); M25.761 Osteophyte, right knee; K21.9 Gastro-esophageal reflux disease without esophagitis; I45.10 Unspecified right bundle-branch block; Z79.82 Long term (current) use of aspirin; Z87.891 Personal history of nicotine dependence
CPT/HCPCS: 27447; 36415; 51702; 73560; 80048; 80053; 81001; 85025; 87077; 87086; 87186; 97110; 97116; 97161; 97165; 97530; C1776; C9290; G0378; J0690; J1100; J2250; J2704; J2795; J3010; J3370; J3490; J7030

== ENCOUNTER → 2022-06-24 15:33 | Outpatient (BNVA) | payer MEDICARE, OTHER, SELFPAY | PROVIDERS: PCP Internal Medicine; Visit Provider Nurse Practitioner Family | DX: Z96.651 Presence of right artificial knee joint (principal); M17.11 Unilateral primary osteoarthritis, right knee | CPT/HCPCS: 73560; 73565; 99024 ==

== ENCOUNTER 2022-08-06 06:00 | Outpatient (RCR) | payer MEDICARE, OTHER, SELFPAY | END 2022-08-08 23:59 | disposition home or self-care (01) | LOC: SPT 06:00 | PROVIDERS: PCP Internal Medicine; Visit Provider Internal Medicine | DX: Z96.651 Presence of right artificial knee joint (principal) | CPT/HCPCS: 97161 ==

== ENCOUNTER 2023-08-26 09:23 | Outpatient (CLI) | payer MEDICARE, OTHER, SELFPAY ==
--- NOTE | 2023-08-26 09:31 | MM_ITS ---
WS: [id number] BILATERAL 3D TOMOSYNTHESIS DIGITAL SCREENING MAMMOGRAM WITH CAD CLINICAL INFORMATION: SCREENING HISTORY: Screening mammogram. No current complaints. COMPARISON: 2021 TECHNIQUE: Bilateral CC and MLO. FINDINGS: The breast are composed of extremely dense tissue, which can limit the detection of small underlying mass lesions. No suspicious focal mass, asymmetry, calcifications, or architectural distortion. No ev idence of malignancy. Incidental punctate calcifications. IMPRESSION: MM/[place] [id number] BI-RADS: 2-Benign FOLLOW UP: 1 Year Follow-up Recommend return to annual screening mammography.
== END 2023-08-26 09:24 | disposition home or self-care (01) ==
LOC: RAD 09:23
PROVIDERS: PCP Internal Medicine; Visit Provider Internal Medicine
DX: Z12.31 Encounter for screening mammogram for malignant neoplasm of breast (principal)
CPT/HCPCS: 77063; 77067

== ENCOUNTER 2023-11-21 09:47 | Outpatient (CLI) | payer MEDICARE, OTHER, SELFPAY ==
--- NOTE | 2023-11-21 09:53 | USCV_ITS ---
Elmira Kang Age: 73 Gender: F : 1950 Exam Date: 11/21/2023 10:43 Ordering Phys: Sherley Cast MD Technologist: CT Exam Location: [facility] – [place] Indication: edema BP: 119 / 85 HR: Rhythm: Sinus Technical Quality: Adequate MEASUREMENTS (Male / Female) Normal Values 2D ECHO LVOT Diameter 1.9 cm LV Ejection Fraction MOD 2C 72.8 % IVC Diameter 1.8 cm M-MODE LA Ao Ratio MM 1.4 AV Cusp Separation MM 1.8 cm DOPPLER AV Peak Velocity 134.0 cm/s LVOT Peak Velocity 128.0 cm/s AV Area Cont Eq vti 3.3 cm squared AV Area Cont Eq pk 2.6 cm squared MV Area PHT 3.1 cm squared Mitral E to A Ratio 0.9 TR Peak Velocity 154.0 cm/s TR Peak Gradient 9.5 mmHg Right Atrial Pressure 3.0 mmHg Pulmonary Artery Systolic Pressu 12.5 mmHg FINDINGS Left Ventricle Normal left ventricular cavity size. Mild left ventricular hypertrophy. Normal left ventricular systolic function. No regional wall motion abnormalities. Grade I/IV diastolic dysfunction (abnormal relaxation filling pattern), normal to mildly elevated filling pressures. Left ventricular ejection fraction is estimated at 65 %. Right Ventricle Normal right ventricular size and systolic function. Normal right ventricular systolic pressure. Right Atrium The right atrium is normal in size. Left Atrium The left atrium is normal in size. Mitral Valve Structurally normal mitral valve without significant stenosis or prolapse. There is no mitral regurgitation. Aortic Valve Structurally normal aortic valve without significant sclerosis or stenosis. There is no aortic regurgitation. Tricuspid Valve Structurally normal tricuspid valve without significant stenosis or regurgitation. Pulmonary artery systolic pressure is normal. Pulmonic Valve Pulmonic valve not well visualized. Pericardium Normal pericardium without effusion. Aorta Normal ascending aorta dimension. IVC The inferior vena cava appears normal. CONCLUSIONS Normal left ventricular cavity size. Mild left ventricular hypertrophy. Normal left ventricular systolic function. No regional wall motion abnormalities. Grade I/IV diastolic dysfunction (abnormal relaxation filling pattern), normal to mildly elevated filling pressures. Left ventricular ejection fraction is estimated at 65 %. Previous study was in May 2017. There has been no change. Dr. Azael Morrison MD (Electronically Signed) Final Date: 21 November 2023 13:07 S
== END 2023-11-21 09:48 | disposition home or self-care (01) ==
LOC: RAD 09:48
PROVIDERS: PCP Internal Medicine; Visit Provider Internal Medicine
DX: R60.9 Edema, unspecified (principal); I51.7 Cardiomegaly; I51.89 Other ill-defined heart diseases
CPT/HCPCS: 93306

== ENCOUNTER 2024-04-12 09:41 | Outpatient (CLI) | payer MEDICARE, OTHER, SELFPAY ==
--- NOTE | 2024-04-12 09:49 | MR_ITS ---
WS: [id number] MRI HEAD WITHOUT CONTRAST TECHNIQUE: Sagittal T1, T2 axial, T2 axial FLAIR, axial and coronal T1 images, axial susceptibility w eighted imaging, axial diffusion weighted images, and coronal T2 images were obtained. CLINICAL INFORMATION: SHUFFLING GAIT/DROOLING COMPARISON: MRI 2012 FINDINGS: No evidence of restricted diffusion to suggest acute ischemia. Ventricular system and basal cisterns are patent. Mild small vessel changes. Moderate parenchymal volume loss. Normal posterior fossa. Norm al vascular flow voids at the skull base. No extra-axial fluid collections. No evidence of mass or ma ss effect. Paranasal sinuses and mastoid air cells are well aerated. Normal posterior nasopharynx. No hemosiderin on the susceptibly weighted images. Normal optic chiasm and pituitary infundibulum. Te mporal lobes and hippocampal formations are normal in appearance. Tiny T2 hyperintense lesion in the RIGHT aspect of the pituitary likely incidental pituitary cyst or possibly microadenoma measuring 1.8 mm. Recommend correlation with pituitary function studies. Normal optic chiasm. MR/MR head wo con* [id number] IMPRESSION: 1. No evidence of restricted diffusion to suggest acute ischemia. 2. Mild small vessel changes with moderate parenchymal volume loss progressed since 2012 3. No hemosiderin on susceptibility-weighted images. 4. Tiny 1.8 mm lesion in the RIGHT pituitary may represent incidental pituitar y cyst or possibly microadenoma. Recommend correlation with pituitary function studies. This may be incidental.
== END 2024-04-12 09:42 | disposition home or self-care (01) ==
LOC: RAD 09:43
PROVIDERS: PCP Internal Medicine; Visit Provider Internal Medicine
DX: R26.89 Other abnormalities of gait and mobility (principal); K11.7 Disturbances of salivary secretion; G31.89 Other specified degenerative diseases of nervous system; E23.7 Disorder of pituitary gland, unspecified
CPT/HCPCS: 70551

== ENCOUNTER → 2024-07-05 13:16 | Outpatient (BNVA) | payer MEDICARE, OTHER, SELFPAY | PROVIDERS: PCP Internal Medicine; Visit Provider Specialist | DX: M17.12 Unilateral primary osteoarthritis, left knee (principal) | CPT/HCPCS: 20610; 73560; 73565; 99213; J7318 ==

== ENCOUNTER → 2024-08-09 14:18 | Outpatient (BNVA) | payer MEDICARE, OTHER, SELFPAY | PROVIDERS: PCP Internal Medicine; Visit Provider Specialist | DX: S52.301B Unspecified fracture of shaft of right radius, initial encounter for open fracture type I or II (principal); S52.201B Unspecified fracture of shaft of right ulna, initial encounter for open fracture type I or II; X58.XXXA Exposure to other specified factors, initial encounter | CPT/HCPCS: 73110 ==

== ENCOUNTER 2024-08-09 15:26 | Outpatient (CLI) | payer MEDICARE, OTHER, SELFPAY | END 2024-08-09 15:27 | disposition home or self-care (01) | LOC: SPT 15:27 | PROVIDERS: PCP Internal Medicine; Visit Provider Specialist | DX: Z46.89 Encounter for fitting and adjustment of other specified devices (principal); S52.301S Unspecified fracture of shaft of right radius, sequela; S52.201S Unspecified fracture of shaft of right ulna, sequela; X58.XXXS Exposure to other specified factors, sequela | CPT/HCPCS: 97760; 99024; L3982 ==

== ENCOUNTER → 2024-08-23 14:32 | Outpatient (BNVA) | payer MEDICARE, OTHER, SELFPAY | PROVIDERS: PCP Internal Medicine; Visit Provider Specialist | DX: S52.301B Unspecified fracture of shaft of right radius, initial encounter for open fracture type I or II (principal); S52.201B Unspecified fracture of shaft of right ulna, initial encounter for open fracture type I or II; X58.XXXA Exposure to other specified factors, initial encounter | CPT/HCPCS: 73110; 99024 ==

== ENCOUNTER → 2024-09-06 10:05 | Outpatient (BNVA) | payer MEDICARE, OTHER, SELFPAY | PROVIDERS: PCP Internal Medicine; Visit Provider Specialist | DX: S52.301B Unspecified fracture of shaft of right radius, initial encounter for open fracture type I or II (principal); S52.201B Unspecified fracture of shaft of right ulna, initial encounter for open fracture type I or II; X58.XXXA Exposure to other specified factors, initial encounter | CPT/HCPCS: 73110; 99024 ==

== ENCOUNTER → 2024-09-22 10:51 | Outpatient (BNVA) | payer MEDICARE, OTHER, SELFPAY | PROVIDERS: PCP Internal Medicine; Visit Provider Specialist | DX: S52.301B Unspecified fracture of shaft of right radius, initial encounter for open fracture type I or II (principal); S52.201B Unspecified fracture of shaft of right ulna, initial encounter for open fracture type I or II; X58.XXXA Exposure to other specified factors, initial encounter | CPT/HCPCS: 73110 ==

== ENCOUNTER 2024-09-22 13:44 | Outpatient (CLI) | payer MEDICARE, OTHER, SELFPAY | END 2024-09-22 13:45 | disposition home or self-care (01) | LOC: SPT 13:45 | PROVIDERS: PCP Internal Medicine; Visit Provider Specialist | DX: Z47.89 Encounter for other orthopedic aftercare (principal); M25.531 Pain in right wrist | CPT/HCPCS: L3908 ==

== ENCOUNTER 2024-10-13 10:55 | Outpatient (CLI) | payer MEDICARE, OTHER, SELFPAY ==
--- NOTE | 2024-10-13 11:04 | MM_ITS ---
WS: [id number] BILATERAL SCREENING DIGITAL TOMOSYNTHESIS MAMMOGRAM WITH CAD HISTORY: SCREENING COMPARISON: 08/26/2023, 04/26/2022 Bilateral CC and MLO views with tomosynthesis and synthetic mammography submitted. Computer aided det ection analyzed. Breast composition: The breasts are heterogeneously dense, which may obscure small masses. No suspici ous masses, microcalcifications or architectural distortion. MM/MM scr BI tomosynthesis [id number] IMPRESSION: BI-RADS: 1 - Negative FOLLOW UP: 1 Year Follow-up
== END 2024-10-13 10:56 | disposition home or self-care (01) ==
LOC: RAD 10:58
PROVIDERS: PCP Internal Medicine; Visit Provider Internal Medicine
DX: Z12.31 Encounter for screening mammogram for malignant neoplasm of breast (principal); R92.333 Mammographic heterogeneous density, bilateral breasts
CPT/HCPCS: 77063; 77067

== ENCOUNTER → 2024-11-03 10:26 | Outpatient (BNVA) | payer MEDICARE, OTHER, SELFPAY | PROVIDERS: PCP Internal Medicine; Visit Provider Specialist | DX: S52.301E Unspecified fracture of shaft of right radius, subsequent encounter for open fracture type I or II with routine healing (principal); S52.201E Unspecified fracture of shaft of right ulna, subsequent encounter for open fracture type I or II with routine healing; X58.XXXD Exposure to other specified factors, subsequent encounter | CPT/HCPCS: 73110; 99213 ==

== ENCOUNTER 2025-04-21 12:30 | Outpatient (CLI) | payer MEDICARE, OTHER, SELFPAY ==
--- NOTE | 2025-04-21 12:38 | MR_ITS ---
WS: [id number] MRI LUMBAR SPINE NONCONTRAST HISTORY: DEGENERATIVE DISC DZ,LUMBOSACRAL SPINE W/RADICULOPATHY, LEFT leg pain. COMPARISON: Lumbar spine 10/09/2011 TECHNIQUE: Sagittal and axial multisequence imaging is submitted. The same numbering pattern will be used in the lumbar spine as on the prior study for report purposes. Reversal of the normal cervical lordosis. Scoliosis lumbar spine has progressed since the prior study. Progression of degenerative disc disease. Marrow edema involving the adjacent endplates of L2 and L3. Severe disc space narrowing at L2-3. Mild anterior wedging of T11. Conus terminates normally at L1-2 disc level. T12-L1: Mild disc bulging and facet arthritis. Shallow RIGHT paracentral disc protrusion. No high-grade stenosis. L1-L2: Diffuse annular disc bulging with osteophytic ridging. Central disc osteophyte encroaching upon the ventral thecal sac and narrowing the subarticular recesses. Moderate central, bilateral subarticular recess and foraminal stenosis. L2-L3: Diffuse annular disc bulging, osteophytic ridging and facet arthritis. Disc osteophyte complexes in the foramina. Moderate central, bilateral subarticular recess and LEFT foraminal stenosis. Severe RIGHT foraminal stenosis due to disc osteophyte disease. L3-L4: Diffuse annular disc bulging with osteophytic ridging. Facet and ligamentum flavum hypertrophy. Moderate central, bilateral subarticular recess and foraminal stenosis. L4-L5: Mild annular disc bulging with severe ligamentum flavum and facet arthritis. Disc osteophyte disease extending into the foramina, LEFT greater than RIGHT. Severe central, bilateral subarticular recess and LEFT foraminal stenosis. Mild RIGHT foraminal stenosis. L5-S1: Diffuse annular disc bulging with a central disc protrusion. Facet joint arthropathy. Mild central and subarticular recess and foraminal stenosis. Paravertebral soft tissues are negative for acute process. MR/MR lumbar spine wo con* [id number] IMPRESSION: 1. Numbering of the lumbar vertebral bodies similar to the prior study from 10/09/2011 for reporting purposes. 2. Progression of scoliosis and degenerative disc disease since 2011. Progress ion of central, subarticular recess and foraminal stenosis. 3. Advanced degenerative disc disease with marrow edema at L2-3 and L3-4. 4. L2-3: Moderate central, bilateral subarticular recess and LEFT foraminal st enosis. Severe RIGHT foraminal stenosis due to disc osteophyte disease. 5. L3-4: Moderate central, bilateral subarticular recess and foraminal stenosi s. 6. L4-5: Severe central, bilateral subarticular recess and LEFT foraminal sten osis. 7. L5-S1: Mild central and subarticular recess and foraminal stenosis. 8. L1-2: Moderate central, bilateral subarticular recess and foraminal stenosi s.
== END 2025-04-21 12:31 | disposition home or self-care (01) ==
LOC: RAD 12:33
PROVIDERS: PCP Internal Medicine; Visit Provider Internal Medicine
DX: M51.17 Intervertebral disc disorders with radiculopathy, lumbosacral region (principal); M48.061 Spinal stenosis, lumbar region without neurogenic claudication; M48.07 Spinal stenosis, lumbosacral region; M51.371 Other intervertebral disc degeneration, lumbosacral region with lower extremity pain only; M25.78 Osteophyte, vertebrae; M41.9 Scoliosis, unspecified; M47.27 Other spondylosis with radiculopathy, lumbosacral region
CPT/HCPCS: 72148